=== PATIENT | male | born 1995 | race Caucasian/White ===

== ENCOUNTER 2022-04-23 16:52 | Emergency (ER) | payer OTHER, SELFPAY ==
--- NOTE | ~2022-04-23 | CT_ITS ---
EXAMINATION: CT LUMBAR SPINE WITHOUT CONTRAST CLINICAL INFORMATION: Posttraumatic pain COMPARISON: None TECHNIQUE: Multidetector CT scan of the lumbar spine with multiplanar reconstructions. This CT examination was performed using dose optimization techniques as appropriate, variously including the following: *Automated exposure control *Adjustment of mA and/or kV according to patient size (this includes techniques or standardized protocols for targeted exams where dose is matched to indication/reason for exam; i.e. extremities or head) *Use of iterative reconstruction technique DLP; 400 mGy-cm FINDINGS: There is no evidence of fracture subluxation. There is minimal endplate spurring at the L4-L5 level. There is moderate posterior annular disc bulge asymmetric to the left at the L4-L5 level resulting in early central canal narrowing. No definite nerve root impingement. Broad-based moderate-sized central disc protrusion L5-S1 which abuts both S1 nerve roots. Of note is relatively pronounced diverticulosis within the visualized sigmoid colon. CT/CT lumbar spine wo IV con IMPRESSION: No acute fracture or subluxation. Degenerative disc disease at L4-L5 and L5-S1 as described above.
--- NOTE | 2022-04-23 17:14 | ED_ITS ---
HPI - Back Pain/Injury General Chief Complaint: Back Pain/Injury <Zainab Rust CNP - Last Filed: 04/23/22 17:25> Stated Complaint: back spasms leg numbness <Zainab Rust CNP - Last Filed: 04/23/22 17:25> Time Seen by Provider: 04/23/22 18:10 <Zainab Rust CNP - Last Filed: 04/23/22 17:25> Source: patient <Genaro Kuhn MD - Last Filed: 04/23/22 19:13> Mode of arrival: ambulatory <Genaro Kuhn MD - Last Filed: 04/23/22 19:13> Limitations: no limitations <Genaro Kuhn MD - Last Filed: 04/23/22 19:13> History of Present Illness HPI Narrative: Patient with history of chronic back pain start age of 12 received steroid shot was doing good for years since last year noticed pain again. 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 noticed pain again shooting to the gluteal area no paresthesia no bladder or bowel involvement no muscle weakness patient able to ambulate no midline tenderness <Genaro Kuhn MD - Last Filed: 04/23/22 19:13> Related Data Home Medications: Previous Rx's Medication Instructions Recorded cyclobenzaprine 10 mg tablet 10 mg PO Q8H #20 tabs 04/23/22 ibuprofen 600 mg tablet 600 mg PO Q6H PRN fever or pain 04/23/22 #30 tabs <Zainab Rust CNP - Last Filed: 04/23/22 17:25> Allergies/Adverse Reactions: Allergies Allergy/AdvReac Type Severity Reaction Status Date / Time Sulfa (Sulfonamide Allergy Hives Verified 04/23/22 17:20 Antibiotics) <Zainab Rust CNP - Last Filed: 04/23/22 17:25> Review of Systems Review of Systems: Yes all other systems are reviewed and are negative <Genaro Kuhn MD - Last Filed: 04/23/22 19:13> PMFSH Social History Social History: Social History Advance Directives: No Advance Directives Information Provided: No <Zainab Rust CNP - Last Filed: 04/23/22 17:25> Physical Exam Vital Signs: Vital Signs: Last Vital Signs Temp 98.4 F 04/23/22 17:15 Pulse 111 H 04/23/22 17:15 Resp 18 04/23/22 17:15 BP 114/58 L 04/23/22 17:15 Pulse Ox 94 04/23/22 17:15 O2 Del Method 04/23/22 17:15 BMI result Body Mass Index 22.8 <Zainab Rust CNP - Last Filed: 04/23/22 17:25> Vital Signs: Last Vital Signs Temp 98.4 F 04/23/22 17:15 Pulse 111 H 04/23/22 17:15 Resp 18 04/23/22 17:15 BP 114/58 L 04/23/22 17:15 Pulse Ox 94 04/23/22 17:15 O2 Del Method 04/23/22 17:15 BMI result Body Mass Index 22.8 <Genaro Kuhn MD - Last Filed: 04/23/22 19:13> Appearance: Alert. Oriented X3. No acute distress. ENT: Pharynx normal. Oral Mucosa moist Neck: Normal inspection. Neck supple. CVS: Normal heart rate and rhythm. Pulses normal. Respiratory: No respiratory distress. Equal air entry bilateral, Abdomen: Soft and nontender. Bowel sounds are present, no mass Back: No midline spinal tenderness SLR negative both sides increased pain on abduction of extended left leg ([place] test) positive Skin: Skin warm and dry. Normal skin color. Normal skin turgor. Extremities: No lower extremity edema. No calf tenderness Neuro: Oriented X 3. No motor deficit. No sensory deficit. <Genaro Kuhn MD - Last Filed: 04/23/22 19:13> Course Course Course Narrative: This is an RME: Additional HPI, ROS, PE not included below will be deferred to primary provider. Patient is a 27-year-old male who presents emergency department for evaluation of back pain. Onset 3 days ago, soon after bending forward to life a clothes iron, and then a fall, landing on left leg. P ain radiates down left leg, posterior leg numbness from buttock to heel. Denies fevers, chills, dysuria, urinary frequency, perineal numbness, bladder/ bowel dysfunction. Reports history of back spasms a couple of years ago, thought to be related to herniated lumbar disc since childhood. Previously pain resolved with ice, rest, and a steroid injection. States he is not followed by any back specialist. Took ibuprofen at 0700, 1500 PE: midline tenderness upon palpation Plan: CT lumbar spine <Zainab Rust CNP - Last Filed: 04/23/22 17:25> Medications Administered Discontinued Medications Generic Name Dose Route Start Last Admin Trade Name Freq PRN Reason Stop Dose Admin Cyclobenzaprine HCl 10 mg 04/23/22 18:39 04/23/22 18:54 Cyclobenzaprine Hcl 10 Mg Tablet PO 04/23/22 18:40 10 mg ONCE ONE Administration Ibuprofen 600 mg 04/23/22 18:39 04/23/22 18:54 Ibuprofen 600 Mg Tablet PO 04/23/22 18:40 600 mg ONCE ONE Administration <Zainab Rust CNP - Last Filed: 04/23/22 17:25> Medications Administered Discontinued Medications Generic Name Dose Route Start Last Admin Trade Name Freq PRN Reason Stop Dose Admin Cyclobenzaprine HCl 10 mg 04/23/22 18:39 04/23/22 18:54 Cyclobenzaprine Hcl 10 Mg Tablet PO 04/23/22 18:40 10 mg ONCE ONE Administration Ibuprofen 600 mg 04/23/22 18:39 04/23/22 18:54 Ibuprofen 600 Mg Tablet PO 04/23/22 18:40 600 mg ONCE ONE Administration <Genaro Kuhn MD - Last Filed: 04/23/22 19:13> Medical Decision Making Radiology Impression Discussion of test interpretation with radiology: I have reviewed the radiologist's reading. <Genaro Kuhn MD - Last Filed: 04/23/22 19:13> Radiologist Impression: There is no evidence of fracture subluxation. There is minimal endplate spurring at the L4-L5 level. There is moderate posterior annular disc bulge asymmetric to the left at the L4-L5 level resulting in early central canal narrowing. No definite nerve root impingement. Broad-based moderate-sized central disc protrusion L5-S1 which abuts both S1 nerve roots. Of note is relatively pronounced diverticulosis within the visualized sigmoid colon.? No acute fracture or subluxation. Degenerative disc disease at L4-L5 and L5-S1 as described above. ? <Genaro Kuhn MD - Last Filed: 04/23/22 19:13> Discharge Plan Discharge Clinical Impression: Piriformis syndrome of left side, Left sacral radiculopathy <Zainab Rust CNP - Last Filed: 04/23/22 17:25> Patient Disposition: Home, Self-Care <Zainab Rust CNP - Last Filed: 04/23/22 17:25> Instructions: Lumbar Radiculopathy (ED), Piriformis Syndrome (ED) <Zainab Rust CNP - Last Filed: 04/23/22 17:25> Additional Instructions: Take ibuprofen and muscle relaxant as prescribed Exercises as advised Follow-up with your PCP if not better <Zainab Rust CNP - Last Filed: 04/23/22 17:25> Prescriptions: New cyclobenzaprine 10 mg tablet 10 mg PO Q8H Qty: 20 0RF ibuprofen 600 mg tablet 600 mg PO Q6H PRN (Reason: fever or pain) Qty: 30 0RF <Zainab Rust CNP - Last Filed: 04/23/22 17:25>
[2022-04-23 17:15] VITALS: BP 114/58; PULSE 111; RESP 18; TEMP 36.9; O2SAT 94; BMI 22.8
[2022-04-23] MEDS: Ibuprofen 600 MG TABLET PO (18:54)
[2022-04-23] MEDS: Cyclobenzaprine HCl 10 MG TABLET PO (18:54)
--- NOTE | 2022-04-23 18:57 | PC.NURSE ---
Assumed care for pt. Medicated pt per JUN for 11/10 constant bilateral lower back pain worse to L x 3 days.
[2022-04-23 19:50] VITALS: BP 133/50; PULSE 84; RESP 16
--- NOTE | 2022-04-23 20:05 | PC.NURSE ---
Reviewed discharge instructions with pt. pt verbalized understanding.
--- NOTE | 2022-04-23 20:06 | PC.NURSE ---
Notified DORA Arce that pt was discharged home.
== END 2022-04-23 20:06 | disposition home or self-care (01) ==
PROVIDERS: Emergency Provider Internal Medicine; PCP Internal Medicine
DX: G57.02 Lesion of sciatic nerve, left lower limb (principal); M54.18 Radiculopathy, sacral and sacrococcygeal region
CPT/HCPCS: 72131; 99284